=== PATIENT | male | born 1945 | race Caucasian/White ===

== ENCOUNTER 2018-11-30 01:03 | Inpatient (IN) ==
--- NOTE | 2018-11-21 16:13 | EKG Report ---
Test Performed on : 11/21/2018 4:05:48 PM Test Reason : PAT Blood Pressure : / mmHG Vent. Rate : 064 BPM Atrial Rate : 064 BPM P-R Int : 150 ms QRS Dur : 088 ms QT Int : 470 ms P-R-T Axes : 056 050 087 degrees QTc Int : 484 ms Normal sinus rhythm. with sinus arrhythmia. Nonspecific ST and T wave abnormality Prolonged QT Abnormal ECG No previous ECGs available Confirmed by Tanna LUO, Trevor ([id number]) on 11/22/2018 8:57:49 AM
[2018-11-21 16:52] LABS: HEMATOCRIT 49.6 % (42.0-52.0); HEMOGLOBIN 17.5 g/dL (14.0-18.0); MCH 33.2 PG (27-31); MCHC 35.3 g/dL (33-37); MCV 94.1 FL (81-99); MPV 9.3 FL (7.4-10.4); RBC 5.27 XMIL (4.7-6.1); RDW 12.7 % (11.5-14.5); WBC 8.3 X1000 (4.8-10.8)
[2018-11-21 17:24] LABS: AGAP 10; BUN 11 mg/dL (8-22); CALCIUM 9.1 mg/dL (8.8-10.2); CHLORIDE 103 mmol/L (98-107); COSMO 278; CREATININE 1.1 mg/dL (0.7-1.2); ESTIMATED GFR > 60; GLUCOSE 91 mg/dL (70-104); POTASSIUM 4.3 mmol/L (3.5-5.1); SODIUM 140 mmol/L (136-145); TCO2 27 mmol/L (25-35)
[2018-11-30] MEDS ORDERED: HURRICAINE SPRAY (DOSE) ONE (06:08)
[2018-11-30] MEDS ORDERED: ROBINUL ONE ×2 (06:19→07:39)
[2018-11-30] MEDS ORDERED: XYLOCAINE-MPF 2% ONE ×2 (06:19→07:53)
[2018-11-30] MEDS ORDERED: LR 1,000 ML ONE (06:19)
[2018-11-30] MEDS ORDERED: QUELICIN (DOSE) ONE (06:19)
[2018-11-30] MEDS ORDERED: NORCURON ONE ×2 (06:19→09:15)
[2018-11-30] MEDS ORDERED: SODIUM CHLORIDE 0.9% 20 ML ONE (06:19)
[2018-11-30] MEDS ORDERED: STERILE WATER INJ. ONE ×2 (06:19→09:15)
[2018-11-30] MEDS ORDERED: KEFZOL 2 GM/D5W 2 GM/50 ML IVPB ONE (06:19)
[2018-11-30] MEDS ORDERED: NEO-SYNEPHRINE ONE (06:19)
[2018-11-30] MEDS ORDERED: DIPRIVAN 1% ONE (06:20)
[2018-11-30] MEDS ORDERED: FENTANYL ONE (06:20)
[2018-11-30] MEDS ORDERED: HEPARIN ONE (06:28)
[2018-11-30] MEDS ORDERED: NS 1,000 ML ONE ×2 (06:28→10:34)
[2018-11-30] MEDS ORDERED: KEFZOL ONE (06:28)
[2018-11-30] MEDS ORDERED: EPHEDRINE ONE ×3 (07:11→09:33)
[2018-11-30] MEDS ORDERED: DECADRON ONE (07:14)
[2018-11-30] MEDS ORDERED: ZOFRAN ONE (07:14)
[2018-11-30] MEDS ORDERED: HEPARIN (DOSE) ONE (07:37)
[2018-11-30] MEDS ORDERED: NEOSTIGMINE ONE (07:39)
[2018-11-30] MEDS ORDERED: PAPAVERINE ONE (09:04)
[2018-11-30 09:47] LABS: URINE SOURCE CATH
[2018-11-30 09:51] LABS: BILIRUBIN URINE NEGATIVE (NEGATIVE); BLOOD URINE TRACE (NEGATIVE); COLOR YELLOW; GLUCOSE URINE NEGATIVE (NEGATIVE); KETONE URINE NEGATIVE (NEGATIVE); LEUKOCYTES URINE NEGATIVE (NEGATIVE); NITRITE URINE NEGATIVE (NEGATIVE); PH URINE 5.5; PROTEIN URINE NEGATIVE (NEGATIVE); SP GRAVITY URINE 1.016; TURBIDITY URINE CLEAR (CLEAR); UR EPITHELIAL CELLS <10 /HPF (<10); URINE BACTERIA NEGATIVE /HPF; URINE RBC <10 /HPF (<10); URINE WBC <10 /HPF (<10); UROBILINOGEN URINE NORMAL (NORMAL)
[2018-11-30] MEDS ORDERED: ZOFRAN IV PRN (10:48)
[2018-11-30] MEDS ORDERED: DILAUDID IV PRN (10:48)
[2018-11-30] MEDS: NS 1,000 ML IV SCH ×2 (11:32→21:55)
[2018-11-30] MEDS: PLAVIX PO SCH (11:45)
--- NOTE | 2018-11-30 11:50 | OPERATIVE NOTE ---
PROCEDURE DATE: 11/30/2018 PROCEDURE PERFORMED: 1. Right femoral-popliteal in situ vein bypass. 2. Open right popliteal balloon angioplasty. 3. Open right tibial balloon angioplasty. SURGEON: Caio Valles MD. SCHOOL BUS MECHANIC: KENTON Brown. PREOPERATIVE DIAGNOSIS: Right leg claudication secondary to superficial femoral artery occlusion and possible popliteal occlusion. POSTOPERATIVE DIAGNOSIS: Right leg claudication secondary to superficial femoral artery occlusion and popliteal and tibial stenoses. DESCRIPTION OF PROCEDURE: Satisfactory general endotracheal anesthesia was achieved. The right leg was prepped and draped in a sterile fashion. The foot was excluded. The vein had previously been marked. The vein was bifid, bifurcating in the proximal thigh region. We made a curvilinear incision in the groin along the course of the takeoff of the greater saphenous vein. We dissected deep to the common femoral artery, surrounded it with an umbilical tape. The superficial femoral artery was surrounded with a small vessel loop and the profunda was surrounded with a large vessel loop. A small branch was surrounded with a 2-0 silk. Then 9000 units of heparin were given. We then identified the greater saphenous vein and ligated the branches off of it using 3-0 silks and dividing them. We marked the vein and we followed it to its takeoff from the femoral vein. Here we used a Satinsky clamp to clamp off the takeoff of the greater saphenous vein and amputated the vein there. We then excised the valves at the takeoff of the vein under 2.5 loupe magnification using Montes scissors. We then translocated the vein over to the artery. We occluded flow in the artery and then incised with 11 blade and extend it with a Montes scissors, used a 4.5 punch 3 times in order to make a hole adequate. The takeoff of the SFA was patent. We cut the vein a little bit to match the arteriotomy and used a 5-0 Prolene stitch to construct this anastomosis to the femoral artery. We then allowed flow and a pulse was noted in the proximal greater saphenous vein. We then turned our attention to the distal medial thigh, made a longitudinal incision there that was anterior to the vicki of the vein. We entered the popliteal space and identified the popliteal artery and surrounded it with vessel loops. We saw the major collateral coming into the artery. I knew this was probably with the artery was patent. We surrounded the artery with vessel loops. We then used a puncture needle to puncture the artery and then passed a guidewire followed by a 6-S[place] sheath. We then shot an arteriogram of the popliteal and tibial. This showed a stenosis of the popliteal, distal popliteal, a stenosis of the tibioperoneal trunk, and then 2-vessel runoff via the posterior tibial and peroneal. The anterior tibial was occluded. We then passed an 0.018 wire down the tibial vessel, obtained a 3 x 10 saber balloon and 1st dilated the popliteal to 13 atmospheres which was a little bit greater than the nominal pressure but was not all the way to the burst pressure. This carried the popliteal stenosis to greater than 3 mm, probably 3-1/2. We then, after holding that up for a minute, we shot a picture and then extended, we were satisfied with the popliteal result, we extended the 3 balloon down into the tibioperoneal trunk in ballooned it to nominal pressure for a minute. Completion arteriogram then showed resolution of the tibioperoneal trunk stenosis. So, we had patent flow through the popliteal into the tibioperoneal trunk and into the tibial and peroneal vessels. 53 mL of contrast were used. We then turned our attention back to the vein in the subcutaneous tissue below the incision. We dissected out from the proximal aspect of the incision to the distal aspect. We extended our incision slightly. We identified a branch and passed the [*]LeMaitre valvulotome up the vein to the proximal anastomosis. We then opened the valvulotome and engaged the valves and pulled it down the veins gently. After our 1st trip, we did get pulsatile flow. We did once again, again in gentle manner and again did not really engage any new valves and had satisfactory pulsatile flow, so, we removed it, clipped off a branch. We mobilized the vein for an adequate length. We clipped it off and transected it just past the knee. We then passed our retrograde wire valvulotome up the vein to where we had lysed the valves with the LeMaitre valvulotome. We pulled it down a couple of times to be certain there were no further valves. We cut the valve and had satisfactory flow at the end of the vein and clipped it off. We then swung the vein into the popliteal space down to the artery. We used a bulldog clamp proximally. I did inject some papaverine proximally to allow it to percolate in the vein using about half of 120 mg mixture of papaverine saline, that would be 120 mg in 10 mL. I used 5 mL of it and allowed it to percolate in the vein. We tried to keep the systolic pressure over 110. We then cut the vein graft to the appropriate length and incised it in order to match the arteriotomy that we made after pulling out the 6-S[place] Arabian sheath. We then constructed this anastomosis under 2.5 loupe magnification using a 6- 0 Prolene stitch. Prior to finishing it, we passed a 3, 3-1/2 and 4 dilator into the popliteal. We also allowed flow in the vein graft and it was satisfactory. We then finished the anastomosis and flow was established. Pulse was noted. One additional stitch was used to achieve complete hemostasis of the distal anastomosis. There was 1 spot in the mid thigh were branch was noted and we cut down on it and clipped it off. We continued to have good flow in the vein graft. We then proceeded to irrigate all wounds with saline we closed the proximal wound with a 2-0 Polysorb running stitch x2. We placed some 3-0 Polysorb interrupted stitches in the mid thigh wound, and then closed the distal thigh wound with interrupted 3-0 Polysorb stitches as well. The skin was closed with jg. Sterile dressings were applied. He tolerated it well. Estimated blood loss was 300 mL. He was sent to the recovery room in satisfactory condition. cc: Caio Valles MD
[2018-11-30] MEDS: KEFZOL 1 GM/D5W 1 GM/50 ML IVPB IV SCH ×2 (15:54→23:28)
--- NOTE | 2018-11-30 18:54 | GENERAL SURGERY PROGRESS NOTE ---
DATE: 11/30/2018 TIME: 5:30 in the afternoon. Mr. Harris is doing generally well. He is awake and alert. His wound is cleaned and re-dressed. He is comfortable. We will check his labs in the morning. cc: Caio Valles MD
[2018-11-30] MEDS ORDERED: HALL'S COUGH LOZENGE MT PRN (21:03)
[2018-11-30] MEDS: ZANTAC PO PRN (21:29)
[2018-11-30] MEDS: NORCO-10 PO PRN (21:56)
[2018-12-01] MEDS: ZANTAC PO PRN (00:57)
[2018-12-01 07:02] LABS: BASO# 0.03 X1000 (0.0-0.2); BASO% 0.2 % (0.0-0.8); EOS# 0.09 X1000 (0.0-0.7); EOS% 0.6 % (0.0-10.0); HEMOGLOBIN 12.3 g/dL (14.0-18.0); LYMPH# 1.96 X1000 (1.2-3.4); LYMPH% 13.8 % (20.5-51.1); MCHC 34.2 g/dL (33-37); MCV 96.5 FL (81-99); MONO# 1.05 X1000 (0.11-0.59); MONO% 7.4 % (1.7-9.3); MPV 9.1 FL (7.4-10.4); PLT 207 X1000 (130-400); RBC 3.73 XMIL (4.7-6.1); RDW 12.6 % (11.5-14.5); WBC 14.23 X1000 (4.8-10.8)
[2018-12-01 07:41] LABS: AGAP 8; BUN 11 mg/dL (8-22); CALCIUM 8.1 mg/dL (8.8-10.2); CHLORIDE 103 mmol/L (98-107); COSMO 274; ESTIMATED GFR > 60; GLUCOSE 119 mg/dL (70-104); POTASSIUM 4.2 mmol/L (3.5-5.1); SODIUM 137 mmol/L (136-145); TCO2 26 mmol/L (25-35)
[2018-12-01] MEDS: ASPIRIN EC PO SCH (08:49)
[2018-12-01] MEDS: NS 1,000 ML IV SCH (08:49)
[2018-12-01] MEDS: PLAVIX PO SCH (08:49)
[2018-12-01] MEDS ORDERED: SALINE LOCK IV FLUID XX ONE (14:59)
--- NOTE | 2018-12-01 18:06 | GENERAL SURGERY PROGRESS NOTE ---
DATE: 12/01/2018 SUBJECTIVE: Mr. Harris is postoperative day 1 after right femoral-popliteal in situ vein bypass, with balloon angioplasty of his popliteal and tibial vessels. OBJECTIVE: He is afebrile. Heart rate 60. Blood pressure 151/58. His wound is fine. He has good flow in his graft. He has good posterior tibial flow. PLAN: Saline-lock his IV, get his Mos[place] out and ambulate him. He should be ready for discharge by Tuesday. [facility] to cover in my absence. He will go home on aspirin and Plavix. cc: Caio Valles MD
--- NOTE | 2018-12-01 18:09 | Extremity Venous Study ---
PROCEDURE NAME: Vein Mapping Right GSV - 11/30/2018 REFERRING PHYSICIAN: Caio Valles MD READING PHYSICIAN: Des Negrete MD HYPOID GEAR GENERATOR: [place]. INDICATION: Evaluate for bypass and vicki the greater saphenous vein main branch. FINDINGS: The right greater saphenous vein is a bifurcated system. The main branch was identified with ultrasound and marked by the physics technician. In zone one, it measured 6.6 mm, zone two 3.7, zone three 3.8, zone four 3.0, zone five 2.4, zone six 3.0, zone seven 3.3, zone eight 3.0 mm. INTERPRETATION: The main trunk of the greater saphenous vein on the right appeared to have a marginally adequate vein for bypass. cc: MD Caio Sandoval MD
--- NOTE | 2018-12-02 09:11 | PROGRESS NOTE ---
DATE: 12/02/2018 SUBJECTIVE: Mr. Casey Harris is postop right femoral popliteal arterial bypass graft per Dr. Valles. He is having some drainage from that wound; most of it is serosanguineous drainage. His right foot clinically feels better. OBJECTIVE: Vital Signs: His heart rate is 62, blood pressure 167/74, O2 saturation 97%. He is afebrile. General: He is tolerating a diet. He has been able to get up and go to the bathroom. PLAN: Will increase his activity. I think that he will need a walker at discharge. He will be discharged on Plavix and aspirin. cc: MD Caio Lucio MD
[2018-12-02] MEDS: PLAVIX PO SCH (11:08)
[2018-12-02] MEDS: PERIDEX MT SCH ×2 (11:08→22:12)
[2018-12-02] MEDS: ASPIRIN EC PO SCH (11:08)
[2018-12-02] MEDS: NORCO-10 PO PRN (18:10)
[2018-12-03 07:19] VITALS: BP 150/76
[2018-12-03] MEDS: PLAVIX PO SCH (08:08)
[2018-12-03] MEDS: ASPIRIN EC PO SCH (08:08)
[2018-12-03] MEDS: PERIDEX MT SCH ×2 (08:08→08:09)
--- NOTE | 2018-12-03 10:49 | DISCHARGE SUMMARY ---
ADMISSION DATE: 11/30/2018 DISCHARGE DATE: 12/03/2018 ADMITTING DIAGNOSIS: Right lower extremity disabling claudication. DISCHARGE DIAGNOSIS: Right lower extremity disabling claudication. PRINCIPAL PROCEDURE: Right femoral popliteal in situ vein bypass, right popliteal artery balloon angioplasty, and right tibial artery balloon angioplasty by Dr. Valles on 11/30/2018. DISCHARGE DIET: A heart healthy diet. DISCHARGE DISABILITY: Full. DISCHARGE DISPOSITION: He will return to our outpatient offices for a recheck in 10 to 14 days. DISCHARGE MEDICATIONS: He is to return to his home medications but we have added aspirin and Plavix. HOSPITAL COURSE: Mr. Casey Harris is a 73-year-old, white male who had disabling claudication of his right lower extremity. He was admitted on 11/30/2018. Underwent saphenous vein mapping, right lower extremity, and then went to the operating room and underwent the above procedures. At the end of the case, he had good flow to his foot and we felt that his postoperative convalescence was normal. He was hospitalized on [address] and was able to ambulate on postop day 3. He was eating a regular diet and had bowel activity. His wound was healing. He had some bruising and swelling involving his leg, some weeping from the incision but it was serous or edematous fluid which was minimal. There was no evidence of infection and it was felt safe to discharge him home under the care of his family on 12/03/2018 with followup in our outpatient offices. He knows to contact us with any problems. cc: MD Caio Lucio MD
== END 2018-12-03 10:51 | disposition home or self-care (01) | DRG 254 ==
LOC: SURHOLD 01:03 → 4N 10:46
PROVIDERS: ADMIT Surgery; ATTEND Surgery
CPT/HCPCS: 36415; 80048; 81001; 85025; 85027; 86850; 86900; 86901; 93005; 93010; 93971; 94760; 94761; 94799; A9270; C1725; J0330; J0690; J1100; J1170; J1644; J2370; J2405; J2440; J3010; J7030; J7120; Q9967